=== PATIENT | male | born 1980 | race Caucasian/White ===

== ENCOUNTER 2021-04-30 12:54 | Emergency (ER) | payer OTHER, SELFPAY ==
[2021-04-30] VITALS (32 sets, daily range): BP systolic 134–169; BP diastolic 63–90; PULSE 92–105; RESP 14–33; TEMP 36.7–37.2; O2SAT 91–100
--- NOTE | 2021-04-30 13:04 | DI.RAD.S_ITS ---
PROCEDURE: XR ANKLE LT MIN 3V INDICATIONS: broken TECHNIQUE: 3 views of the ankle were acquired. COMPARISON: None. FINDINGS: Bones: There is a moderately displaced distal fibular fracture, with prominent widening of the syndesmosis. The talus is dislocated laterally and posteriorly in relation to the distal tibia. The talar dome demonstrates no meche abnormality. No medial malleolar fracture is seen. On these images common no posterior malleolar fracture can be seen although this area is obscured by the overlapping talus. Soft tissues: There is associated soft tissue swelling. IMPRESSION: Ankle fracture/dislocation, with a comminuted distal fibular fracture and widening of the syndesmosis. If it would be helpful for clinical management decision making, please consider a dedicated ankle CT for further evaluation. Dictated by: Cameron Lynn M.D. on 04/30/2021 at 12:29 Approved by: Cameron Lynn M.D. on 04/30/2021 at 12:30
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
[2021-04-30 13:25] LABS: Add Manual Diff / Slide Review NO; Basophils Absolute Auto 0 /uL (0-100); Basophils Percent Auto 0.5 % (0-2); Eosinophils Absolute Auto 100 /uL (0-450); Eosinophils Percent Auto 1.6 % (2-4); Hematocrit 45.3 % (41-53); Hemoglobin 15.6 g/dL (13.5-17.5); Lymphocytes Absolute Auto 2400 /uL (1100-4500); Lymphocytes Percent Auto 32.8 % (25-40); Mean Corpuscular HGB Conc 34.5 % (30-36); Mean Corpuscular Hemoglobin 30.2 PG (26-34); Mean Corpuscular Volume 87.4 fL (80-100); Monocytes Absolute Auto 700 /uL (0-900); Monocytes Percent Auto 9.3 % (3-14); Neutrophils Absolute Auto 4000 /uL (1500-7000); Neutrophils Percent Auto 55.8 % (50-75); Platelet Count 218 X10^3/uL (150-400); Red Blood Cell Count 5.18 X10^6/uL (4.5-5.9); Red Cell Distribution Width 13.6 % (11.6-14.8); White Blood Cell Count 7.2 X10^3/uL (4.5-11.0)
[2021-04-30 13:29] LABS: COVID19 -Nasal RAPID Negative (Negative)
[2021-04-30 13:30] LABS: Alanine Aminotransferase 78 IU/L (<50); Albumin 3.7 g/dL (3.5-5.0); Albumin Globulin Ratio 1.3 (1.0-2.8); Alkaline Phosphatase 85 U/L (38-126); Aspartate Aminotransferase 56 IU/L (17-59); BUN Creatinine Ratio 13.3 (6-22); Bilirubin Total 0.3 mg/dL (0.2-1.3); Blood Urea Nitrogen 13 mg/dL (9-20); Calcium 8.2 mg/dL (8.4-10.2); Carbon Dioxide 32 mmol/L (22-32); Chloride 105 mmol/L (98-107); Estimated Glomerular Filt Rate > 60.0 mL/min (>60); Globulin 2.9 g/dL (1.7-4.1); Glucose 110 mg/dL (70-100); HEMOLYSIS < 15 (0-50); Potassium 3.8 mmol/L (3.4-5.1); Sodium 143 mmol/L (137-145); Total Protein 6.6 g/dL (6.3-8.2)
[2021-04-30] MEDS: TET,DIPH,PERTUSS(ACELL),VAC/PF 0.5 ML SYRINGE IM (13:57)
[2021-04-30] MEDS: propofoL 200 MG/20 ML VIAL 100 MG IV (14:15)
--- NOTE | 2021-04-30 14:22 | DI.RAD.S_ITS ---
PROCEDURE: XR ANKLE LT 2V INDICATIONS: post reduction TECHNIQUE: 2 views of the ankle were acquired. COMPARISON: [facility], CR, XR ANKLE LT MIN 3V, 04/30/2021, 13:06. FINDINGS: Bones: On this post reduction study, there is much better alignment of the distal fibular fracture. The talus is no longer dislocated. On the lateral view, there is now seen a mildly displaced posterior malleolar fracture. The overlying casting material limits evaluation of fine detail. Soft tissues: No tibiotalar joint effusion. Achilles tendon appears normal. IMPRESSION: Much better alignment the distal fibular fracture and the talar dislocation. There is now seen a mildly displaced posterior malleolar fracture. Dictated by: Cameron Lynn M.D. on 04/30/2021 at 13:46 Approved by: Cameron Lynn M.D. on 04/30/2021 at 13:48
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
== END 2021-04-30 15:21 | disposition home or self-care (01) ==
PROVIDERS: Emergency Provider Emergency Medicine
DX: S82.892A Other fracture of left lower leg, initial encounter for closed fracture (principal); V29.9XXA Motorcycle rider (driver) (passenger) injured in unspecified traffic accident, initial encounter; Z23 Encounter for immunization; Z20.822 Contact with and (suspected) exposure to COVID-19
CPT/HCPCS: 27752; 29515; 36415; 73600; 73610; 80053; 85025; 87635; 90471; 99152; 99284; 99285; C9803; 90715; J2704